=== PATIENT | male | born 1960 | race Caucasian/White ===

== ENCOUNTER 2019-01-13 13:39 | Outpatient (CLI) | payer OTHER ==
[~2019-01-13 13:39] MED LIST: AVAPRO300 MG PO; KETO10TA2 PO
== END 2019-01-13 13:42 | disposition home or self-care (01) ==
LOC: RAD 13:39
DX: M20.41 Other hammer toe(s) (acquired), right foot (principal)

== ENCOUNTER 2021-08-26 15:05 | Emergency (ER) | payer OTHER ==
[~2021-08-26] VITALS: Ht 170.2 cm; Wt 88.9 kg
[2021-08-26] MEDS ORDERED: RESTORIL7.5 MG (15:28)
== END 2021-08-26 21:09 | disposition home or self-care (01) ==
LOC: ER 15:05
DX: R07.9 Chest pain, unspecified (principal); I10 Essential (primary) hypertension

== ENCOUNTER 2023-06-11 09:00 | Emergency (ER) | payer OTHER ==
[~2023-06-11] VITALS: Ht 170.2 cm; Wt 72.1 kg
[~2023-06-11 09:00] MED LIST changes: +RESTORIL7.5 MG
[2023-06-11] MEDS ORDERED: TRAZODONE HCL150 MG (09:14)
[2023-06-11] MEDS ORDERED: FAMOTIDINE/PF 20 MG/2 ML VIAL IV PUSH STA (09:29)
[2023-06-11 10:38] LABS: HEMATOCRIT 45.2 % (39.0-48.0); HEMOGLOBIN 15.6 g/dL (13-16.00); MEAN CORPUSCULAR HEMOGLOBIN 29.6 pg (27.00-32.0); MEAN CORPUSCULAR HGB CONC 34.4 g/dl (32.0-36.0); PLATELET COUNT 268 K/uL (150-450); RED BLOOD COUNT 5.26 M/uL (4.00-6.00); RED CELL DISTRIBUTION WIDTH 13.9 % (11.5-14.5)
== END 2023-06-11 12:01 | disposition home or self-care (01) ==
LOC: ER 09:01
PROVIDERS: General Practice
DX: K21.9 Gastro-esophageal reflux disease without esophagitis (principal)
CPT/HCPCS: 36415; 93005; 96365; 99282; J3490

== ENCOUNTER 2023-06-28 14:15 | Outpatient (CLI) | payer OTHER ==
[~2023-06-28 14:15] MED LIST changes: +TRAZODONE HCL150 MG
== END 2023-06-28 14:24 | disposition home or self-care (01) ==
LOC: RAD 14:15
PROVIDERS: ATTEND Orthopaedic Surgery Pediatric Orthopaedic Surgery
DX: M17.0 Bilateral primary osteoarthritis of knee (principal)

== ENCOUNTER → 2023-11-11 | Outpatient (CLI) | payer OTHER | END | disposition home or self-care (01) | LOC: RAD 14:26 | DX: M18.12 Unilateral primary osteoarthritis of first carpometacarpal joint, left hand (principal) ==